=== PATIENT | male | born 1975 | race Hispanic/Latino ===

== ENCOUNTER 2024-04-27 14:49 | Inpatient (IN) | payer OTHER ==
[~2024-04-27] VITALS: Ht 167.6 cm; Wt 83.0 kg
[2024-04-27 18:39] VITALS: PULSE 80; RESP 18; TEMP 98.9
[2024-04-27 20:25] VITALS: BP 136/84; PULSE 73; RESP 20; TEMP 98.6; O2SAT 99
[2024-04-27] MEDS ORDERED: TRAMADOL HCL 50 MG TAB PO PRN (20:30)
[2024-04-27 21:43] VITALS: BP 136/84; PULSE 73; RESP 20; TEMP 98.6; O2SAT 99
[2024-04-27] MEDS: SODIUM CHLORIDE 0.9% 1000ML 1,000 ML IV SCH (22:13)
[2024-04-28] VITALS: BP 123/85; PULSE 60; RESP 20; TEMP 98.6; O2SAT 99
[2024-04-28 04:00] VITALS: BP 122/82; PULSE 71; RESP 20; TEMP 98; O2SAT 98
[2024-04-28] MEDS ORDERED: SIMETHICONE 80 MG CHEW PO PRN (07:00)
[2024-04-28] MEDS ORDERED: ONDANSETRON HCL INJ 2MG/ML 2ML 2 MG/ML VIAL IV PRN (07:00)
[2024-04-28] MEDS ORDERED: DOCUSATE SODIUM 100 MG CAP PO PRN (07:00)
[2024-04-28] MEDS ORDERED: ALBUTEROL/IPRATROPIUM 3 ML NEB NEB PRN (07:00)
[2024-04-28] MEDS ORDERED: MELATONIN 3 MG TAB PO PRN (07:00)
[2024-04-28] MEDS ORDERED: ACETAMINOPHEN 325 MG TAB PO PRN (07:00)
[2024-04-28 07:06] LABS: BASOPHILS # (AUTO) 0.1 (0.0-0.1); BASOPHILS % 0.9 % (0.0-1.0); EOSINOPHILS % 12.3 % (0.0-6.0); HEMATOCRIT 37.5 % (38.2-49.6); LYMPHOCYTES # (AUTO) 2.3 (1.0-3.2); LYMPHOCYTES % 28.7 % (18.0-39.1); MEAN CORPUSCULAR HEMOGLOBIN 31.3 pg (28-32); MEAN CORPUSCULAR HGB CONC 34.7 g/dL (31-35); MEAN CORPUSCULAR VOLUME 90.1 fL (81-99); MONOCYTES # (AUTO) 1.1 (0.2-0.8); MONOCYTES % 13.4 % (4.4-11.3); NEUTROPHILS # (AUTO) 3.5 (2.1-6.9); NEUTROPHILS % 44.6 % (38.7-80.0); PLATELET COUNT 200 x10e3/uL (140-360); RED BLOOD COUNT 4.16 x10e6/uL (4.3-5.7); RED CELL DISTRIBUTION WIDTH 11.9 % (11.7-14.4)
[2024-04-28 07:31] LABS: ALBUMIN 3.7 g/dL (3.5-5.0); ALBUMIN/GLOBULIN RATIO 1.2 (0.8-2.0); ANION GAP 11.5 mmol/L (8-16); BILIRUBIN,TOTAL 0.7 mg/dL (0.2-1.2); CALCIUM 8.3 mg/dL (8.4-10.2); CREATININE, SERUM 0.83 mg/dL (0.72-1.25); POTASSIUM 3.5 mmol/L (3.5-5.1); TOTAL PROTEIN 6.7 g/dL (6.5-8.1)
[2024-04-28 07:32] LABS: ALBUMIN 3.6 g/dL (3.5-5.0); BILIRUBIN,DIRECT 0.3 mg/dL (0.0-0.5); BILIRUBIN,TOTAL 0.7 mg/dL (0.2-1.2); PHOSPHORUS 3.2 MG/DL (2.3-4.7); TOTAL PROTEIN 6.7 g/dL (6.5-8.1)
[2024-04-28 08:00] VITALS: BP 136/87; PULSE 66; RESP 16; TEMP 98.1; O2SAT 95
[2024-04-28 09:00] VITALS: BP 136/87; PULSE 66; RESP 16; TEMP 98.1; O2SAT 95
[2024-04-28 09:57] VITALS: PULSE 69; RESP 18; O2SAT 96
[2024-04-28 12:00] VITALS: BP 157/98; PULSE 56; RESP 16; TEMP 98.2; O2SAT 100
[2024-04-28] MEDS ORDERED: CEPHALEXIN500 MG PO (15:32)
[2024-04-28] MEDS ORDERED: ACETAMINOPHEN325 M1 PO (15:32)
== END 2024-04-28 17:00 | disposition home or self-care (01) | DRG 603 ==
LOC: FSED 15:02 → ERHOLD 19:21 → MED/SURG2 20:38
PROVIDERS: ADMIT Internal Medicine; ATTEND Internal Medicine
DX: L03.116 Cellulitis of left lower limb (principal); M79.81 Nontraumatic hematoma of soft tissue; Z87.891 Personal history of nicotine dependence; M10.9 Gout, unspecified; Z11.52 Encounter for screening for COVID-19
CPT/HCPCS: 36415; 80053; 80076; 81003; 83735; 84100; 85025; 85610; 93971; 94799; 99284; J0696; J7030